=== PATIENT | female | born 1965 | race African-American/Black ===

== ENCOUNTER 2017-11-10 06:55 | Emergency (ER) | payer OTHER ==
[~2017-11-10] VITALS: Ht 154.9 cm; Wt 72.6 kg
[~2017-11-10 06:55] MED LIST: ANTIVERT25 MG PO
[2017-11-10 07:47] LABS: URINE BILIRUBIN NEGATIVE (Negative); URINE BLOOD NEGATIVE (Negative); URINE CLARITY CLEAR; URINE COLOR YELLOW; URINE GLUCOSE-RANDOM* NEGATIVE (Negative); URINE KETONES NEGATIVE (Negative); URINE LEUKOCYTES-REFLEX NEGATIVE (Negative); URINE NITRITE-REFLEX NEGATIVE (Negative); URINE PROTEIN (DIPSTICK) NEGATIVE (Negative); URINE SPECIFIC GRAVITY 1.015 (1.005-1.035); URINE UROBILINOGEN 0.2 E.U./dl (0.2-1.0)
[2017-11-10 08:09] LABS: ABSOLUTE NEUTROPHILS 6.1 thou/uL (1.4-8.2); BASOPHILS 0.9 % (0.0-2.0); EOSINOPHILS 2.2 % (0.0-3.0); HEMATOCRIT 37.6 % (37.0-47.0); HEMOGLOBIN 12.4 gm/dL (12.0-15.0); LYMPHOCYTES 22.6 % (24.0-44.0); MCH 28.4 pg (26.0-34.0); MCV 85.9 fL (80.0-100.0); PLATELET COUNT 278 thou/uL (150-400); POLYS 67.3 % (36.0-66.0); RBC 4.38 mil/uL (4.20-5.00); RDW 14.1 % (10.5-14.5)
[2017-11-10 08:17] LABS: CREATININE 0.8 mg/dL (0.6-1.0); POTASSIUM 3.3 mmol/L (3.5-5.1)
[2017-11-10 08:39] VITALS: BP 154/88
== END 2017-11-10 08:30 | disposition home or self-care (01) ==
LOC: ER 06:55
PROVIDERS: Emergency Medicine
DX: G43.919 Migraine, unspecified, intractable, without status migrainosus (principal); R35.0 Frequency of micturition

== ENCOUNTER 2019-04-16 13:32 | Emergency (ER) | payer OTHER ==
[~2019-04-16] VITALS: Ht 154.9 cm; Wt 85.7 kg
[2019-04-16 14:29] LABS: HEMATOCRIT 37.2 % (37.0-47.0); HEMOGLOBIN 12.3 gm/dL (12.0-15.0); MCH 28.5 pg (26.0-34.0); MCHC 33.1 g/dL (28.0-37.0); RBC 4.32 mil/uL (4.20-5.00); RDW 13.6 % (10.5-14.5)
[2019-04-16 14:33] LABS: CALCIUM 9.6 mg/dL (8.5-10.1); CREATININE 0.8 mg/dL (0.6-1.0); POTASSIUM 4.1 mmol/L (3.5-5.1)
[2019-04-16] MEDS ORDERED: MOTION RELIEF25 MG PO (15:55)
[2019-04-16] MEDS ORDERED: AMOXICILLIN 50500 MG PO (16:33)
[2019-04-16 16:35] VITALS: BP 125/70
== END 2019-04-16 16:47 | disposition home or self-care (01) ==
LOC: ER 13:32
PROVIDERS: Physician Assistant
DX: J32.9 Chronic sinusitis, unspecified (principal); H93.3X9 Disorders of unspecified acoustic nerve; R42 Dizziness and giddiness; G43.909 Migraine, unspecified, not intractable, without status migrainosus

== ENCOUNTER 2019-04-24 07:26 | Inpatient (IN) | payer OTHER ==
[~2019-04-24] VITALS: Ht 154.9 cm; Wt 93.3 kg
[~2019-04-24 07:26] MED LIST changes: +AMOXICILLIN 50500 MG PO; +MOTION RELIEF25 MG PO
[2019-04-24 07:27] VITALS: BP 158/85
[2019-04-24 08:10] LABS: ABSOLUTE NEUTROPHILS 6.6 thou/uL (1.4-8.2); BASOPHILS 0.7 % (0.0-2.0); CALCIUM 10.2 mg/dL (8.5-10.1); CREATININE 0.8 mg/dL (0.6-1.0); EOSINOPHILS 1.9 % (0.0-3.0); HEMATOCRIT 40.7 % (37.0-47.0); HEMOGLOBIN 13.4 gm/dL (12.0-15.0); LYMPHOCYTES 21.4 % (24.0-44.0); MCH 28.7 pg (26.0-34.0); MCHC 32.8 g/dL (28.0-37.0); MCV 87.4 fL (80.0-100.0); MONOCYTES 8.3 % (1.0-8.0); PLATELET COUNT 279 thou/uL (150-400); POLYS 67.7 % (36.0-66.0); POTASSIUM 4.1 mmol/L (3.5-5.1); RBC 4.66 mil/uL (4.20-5.00); RDW 13.7 % (10.5-14.5); WBC 9.7 thou/uL (4.0-11.0)
[2019-04-24] MEDS ORDERED: FLONASE 0.05%50 MCG NARES (08:47)
[2019-04-24 10:15] LABS: URINE BILIRUBIN NEGATIVE (Negative); URINE BLOOD NEGATIVE (Negative); URINE CLARITY CLEAR; URINE COLOR YELLOW; URINE GLUCOSE-RANDOM* NEGATIVE (Negative); URINE KETONES NEGATIVE (Negative); URINE LEUKOCYTES-REFLEX NEGATIVE (Negative); URINE NITRITE-REFLEX NEGATIVE (Negative); URINE PROTEIN (DIPSTICK) NEGATIVE (Negative); URINE UROBILINOGEN 0.2 E.U./dl (0.2-1.0)
--- NOTE | 2019-04-24 13:55 | EKG ---
[address] [address] ELECTROCARDIOGRAM REPORT Name: ARACELISROSALES KU Room #: 170-1 ADM IN M.R.#: [id number] Admission: 04/24/19 Attend Phys: Juan Cota MD Discharge: Date of : 69 Report #: [id number] THIS RE[facility] FOR: //name[facility] Test Date: 2019-04-24 Test Time: 08:42:29 Pat Name: ROSALES HSU Department: Room: 170 Gender: F [employer] Operator: joseph : [id number] Requested By: Guilherme Fallon Order Number: [id number] MD: Chucky Morrow Measurements Intervals Brea Rate: 76 P: 50 CT: 165 QRS: 15 QRSD: 82 T: 42 QT: 385 QTc: 433 Interpretive Statements Sinus rhythm Baseline wander in lead(s) V4 Compared to ECG 10/27/2016 03:08:34 No significant changes Electronically Signed On 04-24-2019 13:54:57 CDT by Chucky Morrow [email or web address] <ELECTRONICALLY SIGNED> By: Chucky Morrow MD 04/24/19 1354 1 Chucky Morrow MD /SANDRITA
[2019-04-24 16:20] VITALS: BP 148/80
[2019-04-24 16:50] VITALS: BP 148/80
[2019-04-24 17:05] VITALS: BP 149/95
--- NOTE | 2019-04-24 19:45 | NUR ---
TO UNIT FROM Jose AT 1745, REPORT FROM NIKI DAVIS. AAOX4. NO C/O. ORIENTED TO UNIT. FAMILY AT BEDSIDE. SR PER TELE. WILL CONTINUE TO MONITOR.
--- NOTE | 2019-04-24 19:55 | NUR ---
DR. PAT VILLATORO, ENT, CALLS AND STATES HE WOULD SEE THE PATIENT ON AN OUTPATIENT BASIS UPON DISCHARGE TO BETTER EVALUATE. ALSO ORDERED ATIVAN AND A PREDNISONE TAPER: DOSAGES/SCHEDULE PER HOSPITALIST.
[2019-04-24 20:37] VITALS: BP 128/76
[2019-04-25] VITALS: BP 129/79
[2019-04-25 05:00] VITALS: BP 130/86
[2019-04-25 07:27] VITALS: BP 150/94
--- NOTE | 2019-04-25 07:40 | NUR ---
ASUMED PT CARE AT 1900. VSS. PT A&0X4. PT RESTED WELL ALL NIGHT, CALLS APPROPRIATELY, SOMEWHAT UNSTAEDY ON HER FEET. STILL FEELING DIZZY. UNEVENTFUL NIGHT, PT IS STABLE, PERHAPS D/C TODAY.
[2019-04-25 11:20] VITALS: BP 134/95
--- NOTE | 2019-04-25 16:53 | NUR ---
ASSUMED CARE AT 0700, SHIFT ASSESSMENT DONE, MEDS GIVEN, VSS. DENIES PAIN, NAUSEA, VOMITING. STILL DIZZY, ENCOURAGED TO CALL. NSR ON TELE. ADMITTED TO ER, WENT TO VISIT . WILL CONTINUE TO ASSESS AND ASSIST WITH ADLs NEEDED.
[2019-04-25 17:08] VITALS: BP 127/81
[2019-04-25 19:45] LABS: TSH 2.332 uIU/mL (0.358-3.740)
[2019-04-25 20:15] VITALS: BP 147/77
[2019-04-26 04:17] VITALS: BP 146/89
[2019-04-26 05:07] LABS: HEMATOCRIT 33.8 % (37.0-47.0); MCH 28.9 pg (26.0-34.0); MCHC 32.7 g/dL (28.0-37.0); MCV 88.5 fL (80.0-100.0); RBC 3.82 mil/uL (4.20-5.00); RDW 14.1 % (10.5-14.5); WBC 8.8 thou/uL (4.0-11.0)
[2019-04-26 05:38] LABS: CALCIUM 8.5 mg/dL (8.5-10.1); CREATININE 0.8 mg/dL (0.6-1.0); POTASSIUM 3.9 mmol/L (3.5-5.1)
--- NOTE | 2019-04-26 05:41 | NUR ---
PATIENT SLEPT ON AND OFF THROUGH THE NIGHT. PT C/O HEADACHE THIS AM. MEDICATED WITH TYLENOL. PATIENT STATES DIZZINESS IS MUCH IMPROVED. ABLE TO AMBULATE TO AND FROM BATHROOM WITHOUT DIFFICULTY. TAKING ORAL INTAKE WELL. HEART RATE AND RHYTHM STABLE. BLOOD PRESSURES STABLE. ADEQUATE OXYGENATION ON ROOM AIR. PT IS PROGRESSING TOWARDS GOALS AND ANTICIPATES GOING HOME TODAY.
[2019-04-26 08:00] VITALS: BP 136/76
[2019-04-26 10:50] VITALS: BP 136/89
[2019-04-26] MEDS ORDERED: MOTION RELIEF25 MG PO (12:21)
[2019-04-26 13:11] VITALS: BP 136/89
--- NOTE | 2019-04-26 14:01 | NUR ---
PT CARE ASSUMED APPROX 0700. ASSESSMENTS CAHRTED. PT REPORTS HEADACHE. RELIEF NOTED WITH CURRENT MEDS. DENIES SOA. VSS. UP WITH STEADY GAIT. NOTED MILD WEAKNESS. REPROTS MILD VERTIGO SYMPTOMS. PT TO F/U WITH ENT OUTPT. CALL OUT AT THIS TIME TO ATTEMPT SOONER APPT. NO CALLBACK NOTED. FAMILY AT BEDSIDE FOR DISCHARGE EDUCATION. PT AND FAMILY DENY QUESTIONS OR CONCERNS REGARDING POST HOSPITAL CARES AND F/U. IV OUT, TELE BOX OFF. PT IS NOT LEAVING AT THIS TIME. SHE IS STAYING ON UNIT WITH IN ROOM 217 FOR VISITATION.
--- NOTE | 2019-04-26 14:17 | HC ---
[facility] [place] [address] CONSULTATION Name: ROSALES HSU Room #: 200-I ADM IN [facility].#: [id number] Admission: 04/24/19 Attend Phys: Juan Cota MD Discharge: Date of : 69 Report #: [id number] THIS REPORT FOR: //name// [facility] DATE OF SERV[facility]: 04/24/2019 HISTORY OF PRESENT ILLNESS: This is a 54-year-old female patient who was admitted because she started having vertigo about 2 days ago. This started spontaneously. There was no trauma associated with this. She has vertigo in the past, but has never lasted as long as it has lasted this time. The symptoms are worse when she moves her neck, which is about the same as it has been previously. REVIEW OF SYSTEMS: Positive for vertigo in the past. She had similar episodes in the past, but this episode is different because it is more severe and more prolonged. A 14-point review of system was otherwise unremarkable. She says she is usually healthy, except for this vertigo. She indicates she has taken some meclizine for this vertigo, but usually does not take any medications. FAMILY HISTORY: Unremarkable. SOCIAL HISTORY: She said she does not abuse alcohol. PHYSICAL EXAMINATION: Indicates she is alert, responsive, able to follow simple and complex command. Cranial nerve examination 2-12 looks mostly unremarkable. She has symmetrical strength, sensation, reflexes and tone in all 4 extremities. She is not able to walk because of difficulty with vertigo and her gait. Cardiac examination is unremarkable. Her sensation looks intact. There is no meningeal sign. There is no carotid bruit. One time she was here in the Emergency Room with a headache. No respiratory difficulty or rhonchi was noticed. Blood pressure is 148/80, respiration is 18, pulse is 82 and temperature is 98.2. IMPRESSION: This patient's symptoms may be related to ENT, but they are severe symptoms. Posterior fossa etiology needs to be excluded. I ordered a stat MRI of the brain and MRA to exclude any other etiology. I agree that we need an ENT consult. We will see if MRI demonstrates any pathology. Thank you very much for this referral. <ELECTRONICALLY SIGNED> By: Leon Garcia MD 04/26/19 1417 [id number] Leon Garcia MD /nt
== END 2019-04-26 15:37 | disposition home or self-care (01) | DRG 149 ==
LOC: ER 07:26 → 2N 11:27 → EROBS 11:27 → 2N 16:44
PROVIDERS: Emergency Medicine; Psychiatry & Neurology Neuromuscular Medicine; ADMIT Hospitalist
DX: H81.10 Benign paroxysmal vertigo, unspecified ear (principal); G43.909 Migraine, unspecified, not intractable, without status migrainosus; I10 Essential (primary) hypertension; E78.5 Hyperlipidemia, unspecified; T46.5X5A Adverse effect of other antihypertensive drugs, initial encounter; Y92.89 Other specified places as the place of occurrence of the external cause; Z79.899 Other long term (current) drug therapy; Z23 Encounter for immunization
CPT/HCPCS: 10081; 27000

== ENCOUNTER 2020-05-23 14:20 | Emergency (ER) | payer OTHER ==
[~2020-05-23] VITALS: Ht 154.9 cm; Wt 84.8 kg
[~2020-05-23 14:20] MED LIST changes: +FLONASE 0.05%50 MCG NARES
[2020-05-23] MEDS ORDERED: TESSALON PERLE100 MG PO (15:22)
[2020-05-23] MEDS ORDERED: ZPAK PO (15:22)
[2020-05-23 15:37] VITALS: BP 105/81
== END 2020-05-23 16:03 | disposition home or self-care (01) ==
LOC: ER 14:20
DX: R05 Cough (principal); I10 Essential (primary) hypertension; G43.909 Migraine, unspecified, not intractable, without status migrainosus; Z79.899 Other long term (current) drug therapy